=== PATIENT | female | born 1955 | race African-American/Black ===

== ENCOUNTER 2023-03-07 18:16 | Emergency (ER) | payer OTHER ==
[~2023-03-07] VITALS: Ht 160 cm; Wt 55.3 kg
[2023-03-07] MEDS ORDERED: LEVETIRACETAM (500MG) 500 MG/5 ML VIAL IV ONE (21:09)
[2023-03-07] MEDS ORDERED: LABETALOL HCL IV 100MG VIAL ONE (21:13)
[2023-03-07] MEDS: LEVETIRACETAM (500MG) 1,000 MG in IV NS 0.9% 90 ML IV SCH (21:18)
[2023-03-07] MEDS ORDERED: MANNITOL IV ONE ×2 (21:20→21:21)
[2023-03-07] MEDS: LABETALOL 20 MG/4 ML VIAL IV ONE ×2 (21:29→22:21)
[2023-03-07 21:48] LABS: BASOPHILS % (AUTO) 0.5 % (0.0-2.0); HEMATOCRIT 39 % (33-45); HEMOGLOBIN 12.5 g/dL (11.5-14.8); LYMPHOCYTES # (AUTO) 0.7 K/uL (0.8-4.8); LYMPHOCYTES % (AUTO) 14.5 % (20.0-44.0); MEAN CORPUSCULAR HEMOGLOBIN 27 PG (26.0-33.0); MEAN CORPUSCULAR HGB CONC 32 g/dl (31.0-36.0); MEAN CORPUSCULAR VOLUME 84 fL (82-100); MONOCYTES # (AUTO) 0.3 K/uL (0.1-1.30); NEUTROPHILS # (AUTO) 3.7 K/uL (1.8-8.9); PLATELET COUNT (AUTO) 217 K/uL (150-450); WHITE BLOOD COUNT (AUTO) 4.7 K/uL (4.3-11.0)
[2023-03-07 21:55] LABS: CALCIUM, SERUM 9.4 mg/dL (8.5-10.1); CREATININE 0.9 mg/dL (0.6-1.3)
[2023-03-07 22:01] LABS: ALBUMIN 3.4 g/dL (3.4-5.0); BILIRUBIN,DIRECT 0.1 mg/dL (0.0-0.2); BILIRUBIN,TOTAL 0.5 mg/dL (0.2-1.0); TOTAL PROTEIN, SERUM 7.8 g/dL (6.4-8.2)
[2023-03-07 22:03] LABS: INR 1.02 (0.91-1.10); PARTIAL THROMBOPLASTIN TIME 24.1 SEC (24.3-34.3); PROTHROMBIN TIME 10.8 SECS (9.2-11.1)
[2023-03-07] MEDS: MANNITOL 12.5 GM/50 ML VIAL IV ONE (22:21)
[2023-03-07 22:47] VITALS: BP 134/84; TEMP 98; O2SAT 99
== END 2023-03-07 22:54 | disposition short-term general hospital (02) ==
LOC: ER 18:48
DX: S06.5XAA Traumatic subdural hemorrhage with loss of consciousness status unknown, initial encounter (principal); I10 Essential (primary) hypertension; V89.2XXA Person injured in unspecified motor-vehicle accident, traffic, initial encounter; Y93.89 Activity, other specified; Y92.89 Other specified places as the place of occurrence of the external cause; Y99.8 Other external cause status
CPT/HCPCS: 99285; 96365; 70450; 71045; 96375; 93005; 96376; 85025; 80048; 80076; 36415; 85730; J3490 ×3; J2150 ×2; J7030 ×2; A4223; J1953 ×2